=== PATIENT | male | born 1980 | race Caucasian/White ===

== ENCOUNTER 2017-06-16 11:11 | Emergency (ER) | payer SELFPAY ==
[~2017-06-16] VITALS: Ht 182.9 cm; Wt 73.5 kg
[~2017-06-16 11:11] MED LIST: METH10TA PO; XANA1TAB6 PO
[2017-06-16 11:28] VITALS: BP 162/75; PULSE 83; RESP 16; TEMP 98.1; O2SAT 98
[2017-06-16 12:31] VITALS: PULSE 84; RESP 16; O2SAT 98
[2017-06-16] MEDS ORDERED: CLIN1CAP6 PO (12:57)
--- NOTE | 2017-06-16 13:04 | PD ---
HPI Chief Complaint: Oral / Dental Pain or Problem Time Seen by Provider: 12:45 Travel History International Travel<30 days: No Contact w/Intl Traveler<30days: No Traveled to known affect area: No History of Present Illness HPI 37-year-old male presents to the emergency room for evaluation of left-sided facial swelling and upper dental pain for the past 2 days. States swelling started prior to pain. Pain was most severe last night 10/10 and is slightly improved today 8/10. It is constant without radiation. He took ibuprofen last night but has not taken anything today. Patient denies fever, chills, nausea, vomiting, and drainage. He does not have a dentist. Denies chronic medical conditions. Takes medication for anxiety. PFSH Past Medical History Medical History: Denies Significant Hx Anxiety: Yes Diminished Hearing: No Tetanus Vaccination: < 5 Years Influenza Vaccination: No Past Surgical History Surgical History: No Previous Surgery Social History Alcohol Use: Yes (occu) Tobacco Use: Yes (1 ppd, today) Substance Use: No Allergies-Medications (Allergen,Severity, Reaction): Coded Allergies: No Known Allergies (Verified , 06/16/17) Reported Meds & Prescriptions Reported Meds & Active Scripts Active Reported Xanax 1 mg (Alprazolam) Alprazolam 1 mg Tab 1 Tab PO TID Methadone Hcl (Methadone HCl) 10 Mg Tab 25 Mg PO DAILY Review of Systems Except as stated in HPI: all other systems reviewed are Neg Physical Exam Narrative GENERAL: Well-nourished, well-developed male in no acute distress. Afebrile. Ambulatory. SKIN: Focused skin assessment warm/dry. HEAD: Normocephalic. EYES: No scleral icterus. No injection or drainage. DENTAL: Severe decay throughout. No loose or chipped teeth. No malocclusion. There is obvious left sided upper facial swelling. No induration. There is a possible abscess over tooth #14. No surrounding erythema. No spontaneous drainage. NECK: Supple, trachea midline. No JVD or lymphadenopathy. CARDIOVASCULAR: Regular rate and rhythm without murmurs, gallops, or rubs. RESPIRATORY: Breath sounds equal bilaterally. No accessory muscle use. Data Data Last Documented VS Vital Signs Date Time Temp Pulse Resp B/P (MAP) Pulse Ox O2 Delivery O2 Flow Rate FiO2 06/16/17 12:31 84 16 98 Room Air 06/16/17 11:28 98.1 162/75 (104) [facility] Medical Decision Making Medical Screen Exam Complete: Yes Emergency Medical Condition: Yes Medical Record Reviewed: Yes Differential Diagnosis Dental pain, abscess, gingivitis Narrative Course 37-year-old male presents to the emergency room for evaluation of left upper dental pain and swelling for the past 2 days. Swelling started first and pain came afterward. Denies spontaneous drainage, fever, chills, nausea, and vomiting. Physical exam reveals mild to moderate edema and possible abscess of tooth #14. No surrounding erythema. No induration. A 27-gauge needle abscess was inserted into the abscess without purulent drainage. A dental block was performed and patient was told not to bite his tongue. He will be discharged with prescription for clindamycin and told to follow-up with a dentist. Told to return for worsening symptoms. He understands and agrees to plan. Diagnosis Primary Impression: Dental abscess Referrals: Dentist Additional Instructions: Rest and drink plenty of fluids. [place] your teeth twice daily. Clindamycin as directed, until gone. Ibuprofen and Tylenol as directed on box for pain. Follow-up with a dentist. Return to the emergency room for worsening symptoms. Med/Other Pt SpecificInfo: Prescription(s) given Scripts Clindamycin (Clindamycin) 300 Mg Cap 300 MG PO Q6H for Infection for 10 Days, CAP 0 Refills Prov: Merline Shipman MD 06/16/17 Disposition: 01 DISCHARGE HOME Condition: Stable Chelly Schmid Jun 16, 2017 13:04
== END 2017-06-16 13:24 | disposition home or self-care (01) ==
LOC: PHEFT 11:11
DX: K04.7 Periapical abscess without sinus (principal); F17.210 Nicotine dependence, cigarettes, uncomplicated
CPT/HCPCS: 64400